=== PATIENT | female | born 1960 | race Caucasian/White ===

== ENCOUNTER 2018-08-18 09:36 | Emergency (ER) | payer OTHER ==
[~2018-08-18] VITALS: Ht 157.5 cm; Wt 96.8 kg
[2018-08-18 09:41] VITALS: BP 141/82; PULSE 99; RESP 18; Ht 157.5 cm; Wt 96.8 kg
[2018-08-18] MEDS ORDERED: IBUPROFEN 600 MG TAB PO ONE (10:00)
[2018-08-18] MEDS ORDERED: ACETAMINOPHEN 500 MG TAB PO STA (10:00)
[2018-08-18] MEDS ORDERED: DOXY100T20 PO (11:10)
[2018-08-18] MEDS ORDERED: ACET325T33 PO (11:10)
[2018-08-18] MEDS ORDERED: CETI10CA PO (11:10)
--- NOTE | 2018-08-18 15:31 | ERD ---
ER Documentation Chief Complaint Chief Complaint fever, throat pain, body pain x this am HPI 58-year-old female presents to the ED complaining of fever, sore throat, congestion since this morning. She denies chest pain or shortness of breath. She states that she has not taken medications for this. Denies dysuria, nausea vomiting diarrhea ROS All systems reviewed and are negative except as per history of present illness. Medications Home Meds Active Scripts Cetirizine Hcl* (Zyrtec*) 10 Mg Capsule, 10 MG PO DAILY, #30 TAB.CHEW Prov:SHAYNE SHAH PA-C 08/18/18 Acetaminophen* (Tylenol*) 325 Mg Tablet, 2 TAB PO Q6 PRN for PAIN AND OR ELEVATED TEMP, #30 TAB Prov:SHYANE SHAH PA-C 08/18/18 Doxycycline Hyclate* (Doxycycline Hyclate*) 100 Mg Tablet.dr, 100 MG PO BID for 10 Days, TAB Prov:SHAYNE SHAH PA-C 08/18/18 Physical Exam Vitals Vital Signs Date Temp Pulse Resp B/P (MAP) Pulse Ox O2 O2 Flow FiO2 Time Delivery Rate 08/18/18 100.7 10:10 08/18/18 100.7 10:10 08/18/18 100.9 99 18 141/82 97 09:41 (101) Physical Exam GENERAL: well-developed/well-nourished, in no apparent distress, non-toxic appearing HEAD: NC/AT, no swelling noted in frontal or maxillary areas EARS: bilateral tympanic membrane is intact without erythema or effusion NARES: congested THROAT: oropharynx non-erythematous without exudates, no tonsil enlargement, EYES: Conjunctiva normal NECK: Supple, no lymphadenopathy PULM: CTA bilaterally, no rales, rhonchi, or wheezing heard CV: Normal S1S2, RRR, good capillary refill GI: Soft, non-distended, normal bowel sounds, non-tender BACK: No midline tenderness, no masses EXT No clubbing, cyanosis, or edema NEURO: Alert and Orientated SKIN: Intact, normal turgor PSYCH: Normal mood and mentation Results 24 hrs Current Medications Medications Dose Sig/Ilda Start Time Status Last (Trade) Ordered Route PRN Stop Time Admin Dose Reason Admin 1,000 mg ONCE STAT 08/18/18 DC 08/18/18 Acetaminophen PO 10:00 10:10 (Tylenol 08/18/18 10:01 Tab) Ibuprofen 600 mg ONCE ONCE 08/18/18 DC 08/18/18 (Motrin) PO 10:00 10:10 08/18/18 10:01 Procedures/MDM 58-year-old female presents to the ED with signs and symptoms consistent with an upper respiratory infection. Patient was febrile but nontoxic-appearing. She is given Tylenol ibuprofen and I reassessed her she feels a lot better. There is no signs of respiratory distress, low suspicion for meningitis, strep and otitis media. Patient's influenza swab was negative. Chest x-ray shows suboptimal inspiration without effusion, edema or infiltrates. Patient will be empirically treated for pneumonia with doxycycline. She was given prescription for Zyrtec and Tylenol as well. I have given her return precautions she under stands and agrees this plan CXR 1. Suboptimal inspiration with no discrete infiltrate, nodule, effusion, or pneumothorax evident. 2. The cardiovascular silhouette appears unremarkable. 3. Mild degenerative enthesopathy of the spine. Departure Diagnosis: Primary Impression: Fever Condition: Stable Patient Instructions: Fever Control (Adult), Uri, Viral, No Abx (Adult) Referrals: NO PRIMARY,CARE PHYSICIAN (PCP) Additional Instructions: Visite a glover ashlee tadeo para un EXAMEN.Regrese a estas instalaciones si no se mejora yessy esperbamos o yessy le dijimos. [place] toda la medicina osmar y yessy se le indic. SHAYNE SHAH PA-C Aug 18, 2018 15:30
== END 2018-08-18 11:52 | disposition home or self-care (01) ==
LOC: FTE 09:36
DX: R50.9 Fever, unspecified (principal)
CPT/HCPCS: 71046; 87400; Z7610